=== PATIENT | female | born 1955 | race Caucasian/White ===

== ENCOUNTER → 2016-07-16 | Outpatient (CLI) | payer OTHER ==
[~2016-07-16] MED LIST: CHOL10003 PO; ESOM40CA24 PO; ROSU20TA11 PO
--- NOTE | 2016-07-16 13:01 | DI ---
Indication: ITS.REASON: M25.572 PAIN IN LEFT ANKLE AND JOINTS OF LEFT FOOT PROCEDURE: ANKLE LEFT 3 VIEW: Encounter: Initial Comparison: None Findings: There is no acute fracture, dislocation or malalignment identified. Impression: No acute osseous abnormality. .
--- NOTE | 2016-07-16 13:01 | DI ---
Indication: ITS.REASON: S99.922S INJURY OF LEFT FOOT PROCEDURE: FOOT LEFT 3 VIEWS: Encounter: Initial Comparison: None Findings: No acute fracture or dislocation seen. Possible prior surgery with resection of the fifth toe proximal phalanx and portions of the fourth toe proximal phalanx. 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 Impression: No acute fracture. Probable prior surgery in the fourth and fifth toes. If there has been no prior surgery, the differential diagnosis would include prior trauma and infection. Osseous destructive neoplasm would be considered unlikely with this appearance. .
== END ==
LOC: IMA 12:14
PROVIDERS: ATTEND Family Medicine
DX: R93.7 Abnormal findings on diagnostic imaging of other parts of musculoskeletal system (principal); M25.572 Pain in left ankle and joints of left foot